=== PATIENT | female | born 1970 | race Caucasian/White ===

== ENCOUNTER 2021-06-12 05:20 | Emergency (ER) | payer BC ==
[~2021-06-12 05:20] MED LIST: BUPROPION XL150 MG PO; CRESTOR5 MG PO; CYCLOBENZAPRINE10 MG PO; DYMISTA NASAL S23 GM; ESTROVEN CMPLT M4 MG PO; FELODIPINE ER5 MG PO; FEXOFENADINE H180 MG PO; GLUCOPHAGE1000 MG PO; NICOTINE PATCH1 EAC2 TD; PROVENTIL HFA6.7 GM INH; VASCEPA1 GM PO; VIIBRYD40 MG PO; VITAMIN D310000 UNIT PO; VOLTAREN EC 7575 MG PO
== END 2021-06-12 07:30 | disposition home or self-care (01) ==
LOC: ER1 05:20
DX: Z53.21 Procedure and treatment not carried out due to patient leaving prior to being seen by health care provider (principal)

== ENCOUNTER → 2022-01-20 | Outpatient (CLI) | payer BC ==
[2022-01-20 07:45] LABS: HEMOGLOBIN 14.5 gm/dl (12.3-15.3); RED BLOOD COUNT 4.62 M/UL (4.00-5.10); WHITE BLOOD COUNT 6.2 K/UL (4.5-11.0)
[2022-01-20 08:04] LABS: BUN/CREATININE RATIO 16 (0-10)
== END ==
LOC: LAB 07:07
PROVIDERS: Family Medicine
DX: E11.42 Type 2 diabetes mellitus with diabetic polyneuropathy (principal); E53.8 Deficiency of other specified B group vitamins; I10 Essential (primary) hypertension; E55.9 Vitamin D deficiency, unspecified
CPT/HCPCS: 36415; 80053; 80061; 82607; 83036; 84443; 85027